=== PATIENT | female | born 1995 | race Caucasian/White ===

== ENCOUNTER 2018-01-01 16:32 | Emergency (ER) | payer SELFPAY ==
[~2018-01-01] VITALS: Ht 172.7 cm; Wt 129.3 kg
[2018-01-01 17:00] VITALS: BP 140/70
[2018-01-01] MEDS ORDERED: ONDANSETRON PF 4 MG/2 ML VIAL. IV ONE (17:30)
[2018-01-01] MEDS ORDERED: IV DEXTROSE 5% - 0.9 % NACL 1,000 ML IV ONE (17:30)
[2018-01-01 18:06] LABS: BASO % 0 % (0-3); EOS # 0.1 x10^3/uL (0.0-0.7); EOS % 1 % (0-3); HEMATOCRIT 38.1 % (36.0-47.0); HEMOGLOBIN 12.8 g/dL (12.0-15.5); LYMPH # 1.8 x10^3/uL (1.0-4.8); LYMPH % 16 % (24-48); MEAN CORPUSCULAR HEMOGLOBIN 28 pg (25-35); MEAN CORPUSCULAR HGB CONC 34 g/dL (31-37); MEAN CORPUSCULAR VOLUME 83 fL (79-100); MONO # 0.8 x10^3/uL (0.0-1.1); MONO % 7 % (0-9); NEUT % 77 % (31-73); PLATELET COUNT 381 x10^3/uL (140-400); RED BLOOD COUNT 4.61 x10^6/uL (3.50-5.40); RED CELL DISTRIBUTION WIDTH 14.7 % (11.5-14.5); WHITE BLOOD COUNT 11.7 x10^3/uL (4.0-11.0)
[2018-01-01 18:09] LABS: BILIRUBIN,URINE SMALL (NEG); CLARITY,URINE CLOUDY; COLOR,URINE AMBER; NITRITE,URINE NEGATIVE (NEG); PH,URINE 5.5; PROTEIN,URINE NEGATIVE (NEG-TRACE)
[2018-01-01 18:17] LABS: CALCIUM 9.4 mg/dL (8.5-10.1); CREATININE 0.9 mg/dL (0.6-1.0); POTASSIUM 3.9 mmol/L (3.5-5.1)
[2018-01-01 18:23] LABS: BACTERIA,URINE FEW /HPF (0-FEW); RBC,URINE 0 /HPF (0-2); SQUAMOUS EPITHELIAL CELL,UR MOD /LPF
[2018-01-01] MEDS ORDERED: CEPH-264 PO (18:56)
[2018-01-01] MEDS ORDERED: ONDA4TAB7 PO (18:56)
--- NOTE | 2018-01-01 18:57 | PHYS DOC ---
Past Medical History Past Medical History: No Pertinent History Past Surgical History: No Surgical History Alcohol Use: None Drug Use: None Adult General Chief Complaint Chief Complaint: VOMITING IN HPI HPI Patient is a 22 year old female who presents with [nausea and vomiting for one to 2 weeks. Reports worsening over time, unable to tolerate oral intake. Patient reports that her last menstrual period was in October and took a home test last month that was positive. Denies any vaginal bleeding, discharge, nor abdominal pain. Denies any blood in the emesis. Denies any diarrhea. He fevers or chills. This is the patient's first .] Review of Systems Review of Systems Constitutional: Denies fever or chills [] Eyes: Denies change in visual acuity, redness, or eye pain [] HENT: Denies nasal congestion or sore throat [] Respiratory: Denies cough or shortness of breath [] Cardiovascular: Denies chest pain or palpitations[] GI: See history of present illness[] : Denies dysuria or hematuria [] Musculoskeletal: Denies back pain or joint pain [] Integument: Denies rash or skin lesions [] Neurologic: Denies headache, focal weakness or sensory changes [] Endocrine: Denies polyuria or polydipsia [] All other systems were reviewed and found to be within normal limits, except as documented in this note. Current Medications Current Medications Current Medications Medications (Trade) Dose Ordered Sig/Claudette Start Time Stop Time Status Last Admin Dose Admin Dextrose/Sodium Chloride 1,000 ml @ 0 mls/hr 1X ONCE 01/01/18 17:30 01/01/18 17:31 DC 01/01/18 17:30 1,000 MLS/HR Ondansetron HCl (Zofran) 4 mg 1X ONCE 01/01/18 17:30 18 17:31 DC 01/01/18 18:07 4 MG Allergies Allergies Allergies Coded Allergies Type Severity Reaction Last Updated Verified No Known Drug Allergies 01/01/18 No Physical Exam Physical Exam Constitutional: Well developed, well nourished, no acute distress, non-toxic appearance. [] HENT: Normocephalic, atraumatic, bilateral external ears normal, oropharynx moist, no oral exudates, nose normal. [] Eyes: PERRLA, EOMI, conjunctiva normal, no discharge. [] Neck: Normal range of motion, no tenderness, supple, no stridor. [] Cardiovascular:Heart rate regular rhythm, no murmur [] Lungs & Thorax: Bilateral breath sounds clear to auscultation [] Abdomen: Bowel sounds normal, soft, no tenderness, no masses, no pulsatile masses. [] Skin: Warm, dry, no erythema, no rash. [] Back: No tenderness, no CVA tenderness. [] Extremities: No tenderness, no cyanosis, no clubbing, ROM intact, no edema. [] Neurologic: Alert and oriented X 3, normal motor function, normal sensory function, no focal deficits noted. [] Psychologic: Affect normal, judgement normal, mood normal. [] Current Patient Data Vital Signs Vital Signs Date Time Temp Pulse Resp B/P (MAP) Pulse Ox O2 Delivery O2 Flow Rate FiO2 01/01/18 17:00 98.0 96 20 140/70 (93) 99 Room Air 98.0 Lab Values Laboratory Tests Test 01/01/18 17:40 01/01/18 18:00 Urine Collection Type Unknown Urine Color Flor Urine Clarity Cloudy Urine pH 5.5 Urine Specific [place] 1.025 Urine Protein Negative mg/dL (NEG-TRACE) Urine Glucose (UA) Negative mg/dL (NEG) Urine Ketones (Stick) 40 mg/dL (NEG) Urine Blood Negative (NEG) Urine Nitrite Negative (NEG) Urine Bilirubin Small (NEG) Urine Urobilinogen Dipstick 1.0 mg/dL (0.2 mg/dL) Urine Leukocyte Esterase Moderate (NEG) Urine RBC 0 /HPF (0-2) Urine WBC 5-10 /HPF (0-4) Urine Squamous Epithelial Cells Mod /LPF Urine Bacteria Few /HPF (0-FEW) Urine Mucus Slight /LPF White Blood Count 11.7 x10^3/uL (4.0-11.0) H Red Blood Count 4.61 x10^6/uL (3.50-5.40) Hemoglobin 12.8 g/dL (12.0-15.5) Hematocrit 38.1 % (36.0-47.0) Mean Corpuscular Volume 83 fL (79-100) Mean Corpuscular Hemoglobin 28 pg (25-35) Mean Corpuscular Hemoglobin Concent 34 g/dL (31-37) Red Cell Distribution Width 14.7 % (11.5-14.5) H Platelet Count 381 x10^3/uL (140-400) Neutrophils (%) (Auto) 77 % (31-73) H Lymphocytes (%) (Auto) 16 % (24-48) L Monocytes (%) (Auto) 7 % (0-9) Eosinophils (%) (Auto) 1 % (0-3) Basophils (%) (Auto) 0 % (0-3) Neutrophils # (Auto) 9.0 x10^3uL (1.8-7.7) H Lymphocytes # (Auto) 1.8 x10^3/uL (1.0-4.8) Monocytes # (Auto) 0.8 x10^3/uL (0.0-1.1) Eosinophils # (Auto) 0.1 x10^3/uL (0.0-0.7) Basophils # (Auto) 0.0 x10^3/uL (0.0-0.2) Sodium Level 137 mmol/L (136-145) Potassium Level 3.9 mmol/L (3.5-5.1) Chloride Level 100 mmol/L (98-107) Carbon Dioxide Level 28 mmol/L (21-32) Anion Gap 9 (6-14) Blood Urea Nitrogen 10 mg/dL (7-20) Creatinine 0.9 mg/dL (0.6-1.0) Estimated GFR (Cockcroft-Gault) 79.0 Glucose Level 93 mg/dL (70-99) Calcium Level 9.4 mg/dL (8.5-10.1) Laboratory Tests 01/01/18 18:00 Laboratory Tests 01/01/18 18:00 EKG EKG [] Radiology/Procedures Radiology/Procedures [] Course & Med Decision Making Course & Med Decision Making Pertinent Labs and Imaging studies reviewed. (See chart for details) [Urinalysis showed 5-10 white cells per Field with moderate epithelial cells. 40 ketones were also noted. Her other laboratory tests were otherwise reasonable. ED course: patient was placed in bed, patient tolerated exam well. Patient had IV access established and was given IV D5 normal saline. Patient reported feeling much better after antiemetics. A trial to establish she could tolerate oral intake was performed. Patient was discharged in improved condition. His vision making: No evidence of sepsis, no evidence of ectopic at this time. No evidence of threatened miscarriage at this time. No evidence of significant hyperemesis gravidarum. ] Dragon Disclaimer Dragon Disclaimer This electronic medical record was generated, in whole or in part, using a voice recognition dictation system. Departure Departure Impression: Primary Impression: Nausea and vomiting during Additional Impression: Bacteriuria Disposition: HOME, SELF-CARE Condition: GOOD Referrals: NO PCP (PCP) Patient Instructions: Nausea and Vomiting, - Urinary Tract Infection Additional Instructions: Drink plenty of fluids, frequent small sips. Avoid fatty foods, milk, and pepper. Eat carbohydrate rich foods such as crackers, bananas, rice, applesauce , and toast. No butter or margarine on your bread or toast. You may use jam or jelly. Follow-up with your regular doctor in 2 days. Take the medications as prescribed. Return to the ER if you're unable to tolerate oral intake, develop a fever, started having vaginal bleeding, or any other concerns. Scripts Cephalexin (KEFLEX) 500 Mg Capsule 1 CAP PO TID, #21 CAP Prov: FRANK BARRAGAN DO 01/01/18 Ondansetron Hcl (ZOFRAN) 4 Mg Tablet 4 MG PO PRN TID PRN for VOMITING, #15 nausea/vomiting Prov: FRANK BARRAGAN DO 01/01/18 Problem Qualifiers FRANK BARRAGAN DO Jan 01, 2018 18:57
== END 2018-01-01 19:45 | disposition home or self-care (01) ==
LOC: ER 16:32
DX: O21.9 Vomiting of pregnancy, unspecified (principal); R82.71 Bacteriuria; Z3A.00 Weeks of gestation of pregnancy not specified
CPT/HCPCS: 36415; 80048; 81001; 85025; 87086; 96374; 99284; J2405; J7042; 81025

== ENCOUNTER 2018-01-31 13:21 | Emergency (ER) | payer OTHER, BC ==
[~2018-01-31] VITALS: Ht 172.7 cm; Wt 127.7 kg
[~2018-01-31 13:21] MED LIST: CEPH-264 PO; ONDA4TAB7 PO
[2018-01-31] MEDS ORDERED: ONDANSETRON PF 4 MG/2 ML VIAL. IV ONE (14:15)
--- NOTE | 2018-01-31 14:17 | PHYS DOC ---
Past Medical History Past Medical History: No Pertinent History Past Surgical History: No Surgical History Alcohol Use: None Drug Use: Marijuana Social History Narrative: last use 4 weeks ago Adult General Chief Complaint Chief Complaint: VOMITING IN HPI HPI 22-year-old female presents to ER for complaints of nausea and vomiting. Patient reports she is 1 para 0 with due date of 08/17/18. Patient's LMP was 11/05/17. Patient reports she was seen and this ER on 01/01/18 for similar symptoms and again on 01/25/[address] [facility] ER. She reports she received IV fluids and had ultrasound done on 01/25/18 with intrauterine found- along with chorionic hematoma. She was provided with prescriptions for Reglan 10 mg and [place] 07/16/24. Patient reports last dose of Reglan was at 4 AM-reporting she also took dose at 12 AM with her [place] tablet. Patient reports she has vomited multiple times today. Patient reports she has had similar mid to lower abdominal pain when she was evaluated in the ER at [facility]. Patient denies any vaginal bleeding, pelvic pain or pressure , or urinary symptoms. Pt reports her sxs are similar to when she was in [place] ER previously she came in to ER as she wants her sxs "gone" because she is tired of having nausea. Review of Systems Review of Systems Constitutional: Denies fever or chills [] Eyes: Denies change in visual acuity, redness, or eye pain [] HENT: Denies nasal congestion or sore throat [] Respiratory: Denies cough or shortness of breath [] Cardiovascular: Denies CP/palpitations GI: Denies bloody stools or diarrhea. Reports mid to lower abd. pain which has been ongoing since last ER visit at [place] and at [place] ER on Thursday- denies acute changes. Reports intermittent N/V since : Denies dysuria or hematuria [] Musculoskeletal: Denies back pain or joint pain [] Integument: Denies rash, swelling or skin lesions [] Neurologic: Denies headache, focal weakness or sensory changes [] All other systems were reviewed and found to be within normal limits, except as documented in this note. Current Medications Current Medications Current Medications Medications (Trade) Dose Ordered Sig/Claudette Start Time Stop Time Status Last Admin Dose Admin Ondansetron HCl (Zofran) 4 mg 1X ONCE 01/31/18 14:15 01/31/18 14:16 DC 01/31/18 14:35 4 MG Sodium Chloride 1,000 ml @ 1,000 mls/hr 1X ONCE 01/31/18 14:45 01/31/18 15:44 DC 01/31/18 14:40 1,000 MLS/HR Allergies Allergies Allergies Coded Allergies Type Severity Reaction Last Updated Verified No Known Drug Allergies 01/01/18 No Physical Exam Physical Exam Constitutional: Well developed, well nourished, no acute distress, non-toxic appearance. Steady gait at bedside prior to exam HENT: Normocephalic, atraumatic, oropharynx moist, no oral exudates, nose normal. [] Eyes: Pupils equal, no nystagmus, conjunctiva normal, no discharge. [] Neck: Normal range of motion, no tenderness, supple, no stridor. [] Cardiovascular:Heart rate regular rhythm- initial during triage was 103- recheck 92, no murmur [] Lungs & Thorax: Bilateral breath sounds clear to auscultation. Respirations equal and nonlabored Abdomen: Bowel sounds normal, soft/obese with no distention or rigidity, tender on palpation in mid to lower abdomen with no focal area or rebound tenderness- diffuse in nature, no masses, no pulsatile masses. [] Skin: Warm, dry, no erythema, no rash. [] Back: No tenderness, no CVA tenderness. [] Extremities: No tenderness, no cyanosis, no clubbing, ROM intact, no edema. [] Neurologic: Alert and oriented X 3, normal motor function, normal sensory function, no focal deficits noted. [] Psychologic: Affect normal, judgement normal, mood normal. Denies SI[] Current Patient Data Vital Signs Vital Signs Date Time Temp Pulse Resp B/P (MAP) Pulse Ox O2 Delivery O2 Flow Rate FiO2 01/31/18 16:00 84 117/67 (84) 100 Room Air 01/31/18 13:30 97.9 16 97.9 Lab Values Laboratory Tests Test 01/31/18 13:30 01/31/18 13:43 01/31/18 14:24 01/31/18 14:26 Urine Collection Type Unknown Urine Color Dk yellow Urine Clarity Cloudy Urine pH 6.5 Urine Specific [place] 1.025 Urine Protein 30 mg/dL (NEG-TRACE) Urine Glucose (UA) Negative mg/dL (NEG) Urine Ketones (Stick) 15 mg/dL (NEG) Urine Blood Negative (NEG) Urine Nitrite Negative (NEG) Urine Bilirubin Small (NEG) Urine Urobilinogen Dipstick 1.0 mg/dL (0.2 mg/dL) Urine Leukocyte Esterase Large (NEG) Urine RBC 0 /HPF (0-2) Urine WBC 5-10 /HPF (0-4) Urine Squamous Epithelial Cells Many /LPF Urine Bacteria Many /HPF (0-FEW) Urine Mucus Marked /LPF POC Urine HCG, Qualitative Hcg positive (Negative) Glucose (Fingerstick) 98 mg/dL (70-99) White Blood Count 9.5 x10^3/uL (4.0-11.0) Red Blood Count 4.37 x10^6/uL (3.50-5.40) Hemoglobin 12.5 g/dL (12.0-15.5) Hematocrit 35.7 % (36.0-47.0) L Mean Corpuscular Volume 82 fL (79-100) Mean Corpuscular Hemoglobin 29 pg (25-35) Mean Corpuscular Hemoglobin Concent 35 g/dL (31-37) Red Cell Distribution Width 14.5 % (11.5-14.5) Platelet Count 302 x10^3/uL (140-400) Neutrophils (%) (Auto) 80 % (31-73) H Lymphocytes (%) (Auto) 14 % (24-48) L Monocytes (%) (Auto) 5 % (0-9) Eosinophils (%) (Auto) 1 % (0-3) Basophils (%) (Auto) 0 % (0-3) Neutrophils # (Auto) 7.6 x10^3uL (1.8-7.7) Lymphocytes # (Auto) 1.3 x10^3/uL (1.0-4.8) Monocytes # (Auto) 0.5 x10^3/uL (0.0-1.1) Eosinophils # (Auto) 0.1 x10^3/uL (0.0-0.7) Basophils # (Auto) 0.0 x10^3/uL (0.0-0.2) Sodium Level 135 mmol/L (136-145) L Potassium Level 3.8 mmol/L (3.5-5.1) Chloride Level 101 mmol/L (98-107) Carbon Dioxide Level 24 mmol/L (21-32) Anion Gap 10 (6-14) Blood Urea Nitrogen 6 mg/dL (7-20) L Creatinine 0.7 mg/dL (0.6-1.0) Estimated GFR (Cockcroft-Gault) 105.6 Glucose Level 96 mg/dL (70-99) Calcium Level 9.4 mg/dL (8.5-10.1) Lipase 120 U/L (73-393) Laboratory Tests 01/31/18 14:26 Laboratory Tests 01/31/18 14:26 EKG EKG [] Radiology/Procedures Radiology/Procedures [] Course & Med Decision Making Course & Med Decision Making Pertinent Labs reviewed. (See chart for details) Lab results were discussed with pt and her family- H&H stable 12.5/35.7 with pt denying any vaginal bleeding; K+ 3.8/Na 135 and lipase NL. Accu check 98. UA with 15 ketones/30 protein neg. blood/nitrates/glucose- Lg leuks with micro 5- 10 WBCs many squamous/bacteria. Pt was given NS 1L bolus and dose of Zofran IV. She reported after fluids her abd. pain had improved and she was no longer nauseated. She has had no reported episodes of vomiting while in ER. She remains nontoxic in appearance and during re-eval. is in no visible distress. Discussed N/V during and abd pain- with education on s&s to seek medical eval. for. Discussed with improved sxs plans were for home discharge with pt to keep appt on . with her CHEMICAL UNIT OPERATOR for re-eval. With stable labs/ improved sxs and denial of vaginal bleeding/pelvis pain or pressure although discussion had regarding risks of miscarriage- no further testing done as pt has remained stable with no signs at this time. Pt requesting Rx for Zofran ODT as she doesn't feel Reglan she received at [facility]. was working for her nausea. Advised pt to further discuss nausea med. and any other medication with CHEMICAL UNIT OPERATOR and she reports her CHEMICAL UNIT OPERATOR had given her generic Rx for Zofran and she feels brand Zofran works better. Will provide Rx with discharge paperwork. Will also give Rx for Keflex for UTI. Education provided on s&s to return to ER for and discharge instructions discussed. Pt feels comfortable with discharge plan as discussed. Gregon Disclaimer Gregon Disclaimer This electronic medical record was generated, in whole or in part, using a voice recognition dictation system. Departure Departure Impression: Primary Impression: Nausea and vomiting during Additional Impression: Urinary tract infection Disposition: HOME, SELF-CARE Condition: STABLE Referrals: NO PCP (PCP) Patient Instructions: Nausea and Vomiting, - Urinary Tract Infection Additional Instructions: As discussed you should attempt fluids at home to avoid dehydration- if possible avoid medications unless discussing with your CHEMICAL UNIT OPERATOR. Tylenol as needed for pain as directed on container. Keep your scheduled appointment with your CHEMICAL UNIT OPERATOR on Thursday- call sooner with any concerns. Scripts Cephalexin (KEFLEX) 500 Mg Capsule 1 CAP PO BID, #10 CAP 0 Refills Prov: INDIRA LEE APRN 01/31/18 Ondansetron (ONDANSETRON ODT) 4 Mg Tab.rapdis 1 TAB PO PRN Q6-8HRS PRN for NAUSEA, #8 TAB 0 Refills Prov: INDIRA LEE APRN 01/31/18 Problem Qualifiers INDIRA LEE APRN Jan 31, 2018 14:17
[2018-01-31 14:36] LABS: BASO % 0 % (0-3); EOS # 0.1 x10^3/uL (0.0-0.7); EOS % 1 % (0-3); HEMATOCRIT 35.7 % (36.0-47.0); HEMOGLOBIN 12.5 g/dL (12.0-15.5); LYMPH # 1.3 x10^3/uL (1.0-4.8); LYMPH % 14 % (24-48); MEAN CORPUSCULAR HEMOGLOBIN 29 pg (25-35); MEAN CORPUSCULAR HGB CONC 35 g/dL (31-37); MEAN CORPUSCULAR VOLUME 82 fL (79-100); MONO # 0.5 x10^3/uL (0.0-1.1); MONO % 5 % (0-9); NEUT # 7.6 x10^3uL (1.8-7.7); NEUT % 80 % (31-73); PLATELET COUNT 302 x10^3/uL (140-400); RED BLOOD COUNT 4.37 x10^6/uL (3.50-5.40); RED CELL DISTRIBUTION WIDTH 14.5 % (11.5-14.5); WHITE BLOOD COUNT 9.5 x10^3/uL (4.0-11.0)
[2018-01-31] MEDS ORDERED: IV NORMAL SALINE 1000ML BAG 1,000 ML IV ONE (14:45)
[2018-01-31 15:10] LABS: CALCIUM 9.4 mg/dL (8.5-10.1); CREATININE 0.7 mg/dL (0.6-1.0); GFR 105.6; POTASSIUM 3.8 mmol/L (3.5-5.1)
[2018-01-31 15:28] LABS: BILIRUBIN,URINE SMALL (NEG); CLARITY,URINE CLOUDY; NITRITE,URINE NEGATIVE (NEG); PH,URINE 6.5; PROTEIN,URINE 30 mg/dL (NEG-TRACE)
[2018-01-31 15:36] LABS: COLOR,URINE DK YELLOW
[2018-01-31 15:39] LABS: BACTERIA,URINE MANY /HPF (0-FEW); RBC,URINE 0 /HPF (0-2); SQUAMOUS EPITHELIAL CELL,UR MANY /LPF
[2018-01-31] MEDS ORDERED: ONDA4TAB12 PO (15:53)
[2018-01-31] MEDS ORDERED: CEPH-264 PO (15:56)
[2018-01-31 16:00] VITALS: BP 117/67
== END 2018-01-31 16:08 | disposition home or self-care (01) ==
LOC: ER 13:21
DX: O23.41 Unspecified infection of urinary tract in pregnancy, first trimester (principal); O21.9 Vomiting of pregnancy, unspecified; Z3A.12 12 weeks gestation of pregnancy
CPT/HCPCS: 36415; 80048; 81001; 81025; 82962; 83690; 85025; 87086; 96361; 96374; 99284; J2405; J7030